=== PATIENT | female | born 1950 | race Caucasian/White ===

== ENCOUNTER 2022-05-05 02:47 | Emergency (ER) | payer MEDICARE, BC, OTHER, SELFPAY ==
[2022-05-05 02:50] VITALS: BP 188/108; PULSE 78; RESP 22; TEMP 37.1; O2SAT 98; BMI 16.4
[2022-05-05 02:52] VITALS: PULSE 82; O2SAT 100
[2022-05-05 02:53] VITALS: BP 188/108; PULSE 80; O2SAT 98
--- NOTE | 2022-05-05 04:22 | ED_ITS ---
HPI - General Adult General Chief complaint: Shortness of Breath/Dyspnea Stated complaint: HAVING TROUBLE BREATHING Time Seen by Provider: 05/05/22 03:23 Source: patient Mode of arrival: Ambulatory History of Present Illness HPI narrative: 71-year-old woman with multiple seasonal and medication allergies, asthma, hypertension presents with upper respiratory symptoms for the last 48 hours. She complains of increasing secretions, cough, throat scratchiness, a sensation that she is not able to breathe because she can not get her secretions out she does not describe significant wheezing, body aches, fevers. She is not having a productive cough. She describes no vomiting, nausea, abdominal pain, constipation. No palpitations or lower extremity edema. She has been using Mucinex, and metered-dose inhaler without a spacer and ibuprofen as well as nasal saline rinses but does not feel like she is improving. Related Data Previous Rx's Medication Instructions Recorded dexamethasone 4 mg tablet 4 mg PO DAILY #4 tabs 05/05/22 Allergies Allergy/AdvReac Type Severity Reaction Status Date / Time acetaminophen [From Vicodin] Allergy Verified 05/05/22 03:14 cefadroxil [From Duricef] Allergy Verified 05/05/22 03:14 doxycycline Allergy Verified 05/05/22 03:14 hydrocodone [From Vicodin] Allergy Verified 05/05/22 03:14 medroxyprogesterone Allergy Verified 05/05/22 03:14 [From Provera] metronidazole [From Flagyl] Allergy Verified 05/05/22 03:14 Sulfa (Sulfonamide Allergy Verified 05/05/22 03:14 Antibiotics) tetracycline Allergy Verified 05/05/22 03:14 Review of Systems Review of Systems Narrative: Remainder of complete review of systems is otherwise unremarkable except for that included in the HPI. Patient History Medical History (Updated 05/05/22 @ 05:08 by Mattie Rios MD) Asthma Hypertension Social History Smoking Status: Never smoker Smoking Status: Never smoker Substance Use Type: does not use Exam Initial Vital Signs Initial Vital Signs: Vital Signs Temperature 98.8 F 05/05/22 02:50 Pulse Rate 78 05/05/22 02:50 Respiratory Rate 22 05/05/22 02:50 Blood Pressure 188/108 H 05/05/22 02:50 Pulse Oximetry 98 05/05/22 02:50 Oxygen Delivery Method 05/05/22 02:50 General: Frail appearing, slightly hoarse but Able to give a complete and coher ent history. Well-nourished well-developed HEENT: Moist mucous membranes, normal sclera with reactive pupils, no pharyngeal exudate, no cervical adenopathy Neck: No JVD, supple Respiratory: Lungs with minor upper airway noises in minimal wheeze, no rhonchi or consolidation findings Full and symmetrical air movement Cardiac: Regular rate and rhythm no murmurs no bruits Abdomen: Soft, nontender, good bowel tones, no flank pain Skin: Warm and dry, no rashes Neurologic: Grossly neurologically intact with no obvious asymmetries or abnormalities Extremities: No trauma, well perfused Psych: Cooperative, appropriate insight and affect Course Orders Ordered: ED Orders 05/05/22 03:21 Respiratory Panel (Film Array) Stat Discontinued Medications Dexamethasone (Dexamethasone 4 Mg Tablet) 4 mg PO NOW ONE Stop: 05/05/22 04:31 Last Admin: 05/05/22 04:55 Dose: 4 mg Documented By: SB Vital Signs Vital signs: Vital Signs - 8 hr 05/05/22 02:50 05/05/22 02:52 05/05/22 02:53 Temperature 98.8 F Pulse Rate 78 82 Respiratory Rate 22 Blood Pressure 188/108 H 188/108 H Pulse Oximetry 98 100 Oxygen Delivery Method Room Air 05/05/22 02:53 Temperature Pulse Rate 80 Respiratory Rate Blood Pressure Pulse Oximetry 98 Oxygen Delivery Method Medical Decision Making Lab Data Labs: Lab Results 05/05/22 Range/Units 03:21 Chlamy pneumoniae PCR Not detected (Not Detect) Adenovirus (PCR) Not detected (Not Detect) B. pertussis DNA (PCR) Not detected (Not Detecte) B.parapertussis DNA PCR Not detected (Not Detecte) Coronavirus OC43 (PCR) Not detected (Not Detect) Coronavirus HKU1 (PCR) Not detected (Not Detect) Coronavirus 229E (PCR) Not detected (Not Detect) SARS-CoV-2 (PCR) Not detected (Not Detecte) Coronavirus NL63 (PCR) Not detected (Not Detect) Human Metapneumovir PCR Not detected (Not Detect) Influenza Type A (PCR) Not detected (Not Detect) Influenza Type B (PCR) Not detected (Not Detect) M. pneumoniae (PCR) Not detected (Not Detect) Parainfluenza 1 (PCR) Not detected (Not Detect) Parainfluenza 2 (PCR) Not detected (Not Detect) Parainfluenza 3 (PCR) Not detected (Not Detect) Parainfluenza 4 (PCR) Not detected (Not Detect) RSV (PCR) Detected H (Not Detect) Entero/Rhino (PCR) Not detected (Not Detect) MDM Narrative Medical decision making narrative: 71-year-old woman with multiple sensitivities including 2 nebulizers and prednisone. She does tolerate metered-dose inhalers and Decadron. She is positive for RSV. We talked about supplemental measures that might be helpful. I will give her an additional 5 days of 4 mg of dexamethasone. We talked about moist heat to try to encourage getting the mucus out. She has an entire protocol using saline nasal rinses that I think will be helpful as well. At this point oxygen saturations remain in the upper 90s, she is not acutely toxic in his safe for discharge home Discharge Plan Departure Patient Disposition: Home Clinical Impression: Respiratory syncytial virus Instructions: DI for Respiratory Syncytial Virus -- Adults Activity Restrictions/Additional Instructions: Thank you for coming in today You do not have a bacterial pneumonia or a life-threatening abnormality today. You do have a viral infection that is causing the increased mucus and difficulty breathing. Using your continued nasal saline washes and anti-inflammatories will continue to be helpful. You can use your meter dose inhaler albuterol as needed. I have also given you 4 additional days of dexamethasone to help with respiratory inflammation. If you find that you are getting worse or develop any new symptoms, please feel free to return to the emergency department for further evaluation. Prescriptions: New dexamethasone 4 mg tablet 4 mg PO DAILY Qty: 4 0RF Referrals: Provider,Logan DOUGHERTY [Primary Care Provider] -
[2022-05-05 04:31] LABS: Adenovirus Not Detected (Not Detect); Coronavirus 229E Not Detected (Not Detect); Coronavirus HKU1 Not Detected (Not Detect); Coronavirus NL 63 Not Detected (Not Detect); Coronavirus OC43 Not Detected (Not Detect); Human Metapneumovirus Not Detected (Not Detect); Human Rhinovirus/Enterovirus Not Detected (Not Detect); Influenza A Not Detected (Not Detect); Influenza B Not Detected (Not Detect); Parainfluenza Virus 1 Not Detected (Not Detect); Parainfluenza Virus 2 Not Detected (Not Detect); Parainfluenza Virus 3 Not Detected (Not Detect); Parainfluenza Virus 4 Not Detected (Not Detect); Respiratory Syncytial Virus Detected (Not Detect); SARS- CoV-2 Not Detected (Not Detecte)
[2022-05-05 04:32] LABS: B. parapertussis Not Detected (Not Detecte); Bordetella pertussis Not Detected (Not Detecte); Chlamydophila pneumoniae Not Detected (Not Detect); Mycoplasma pneumoniae Not Detected (Not Detect)
[2022-05-05] MEDS: dexAMETHasone 4 MG TABLET PO (04:55)
== END 2022-05-05 05:16 | disposition home or self-care (01) ==
PROVIDERS: Emergency Provider Emergency Medicine
DX: J06.9 Acute upper respiratory infection, unspecified (principal); B97.4 Respiratory syncytial virus as the cause of diseases classified elsewhere; Z20.822 Contact with and (suspected) exposure to COVID-19
CPT/HCPCS: 36415; 87633; 99283

== ENCOUNTER 2022-06-24 16:32 | Emergency (ER) | payer MEDICARE, BC, OTHER, SELFPAY ==
[2022-06-24] VITALS (11 sets, daily range): BP systolic 132–170; BP diastolic 73–83; PULSE 61–71; RESP 18; TEMP 37.3; O2SAT 97–100; BMI 16.4
--- NOTE | 2022-06-24 16:42 | DI.RAD.S_ITS ---
PROCEDURE: XR TIBIA fibula RT 2V INDICATIONS: fall off horse TECHNIQUE: 2 views of the tibia and fibula were acquired. COMPARISON: None. FINDINGS: Bones: Proximal fibular fracture, nondisplaced. Generalized decrease in osseous mineralization noted. Soft tissues: No suspicious soft tissue calcifications or masses. IMPRESSION: Proximal fibular fracture, nondisplaced Approved by: Jose C Dozier M.D. on 06/24/2022 at 16:47
--- NOTE | 2022-06-24 16:43 | DI.RAD.S_ITS ---
PROCEDURE: XR HAND LT MIN 3V INDICATIONS: fall off horse TECHNIQUE: 3 views of the hand(s) acquired. COMPARISON: None. FINDINGS: Bones: Generalized decrease in osseous mineralization noted. Oblique fracture through the base of the 5th metacarpal involves the carpometacarpal joint. Probable additional longitudinal fracture through the base of the 3rd metacarpal as well. Soft tissues: No suspicious soft tissue calcifications. IMPRESSION: Intra-articular fracture through the base of the 3rd and 5th metacarpals. Osteopenia Approved by: Jose C Dozier M.D. on 06/24/2022 at 16:45
--- NOTE | 2022-06-24 18:12 | ED_ITS ---
HPI - Fall General Chief Complaint: Fall Stated Complaint: rt calf swelling/lt hand injury, fell off horse Time Seen by Provider: 06/24/22 17:38 Source: patient Mode of arrival: Wheelchair History of Present Illness HPI Narrative: 71-year-old female nonsmoker with noncontributory medical history presents with a family friend and a chief complaint of injury suffered as a consequence of falling off her horse just prior to arrival. She was wearing a helmet, the horse bucked and she fell off, she denies any head neck or back pain. She has full recall of the event and takes no blood thinners. She has pain in her left hand and also her right lateral knee. She denies any numbness, tingling or weakness. She has no chest pain or shortness of breath. She denies nausea, vomiting, diarrhea or abdominal pain. Related Data Previous Rx's Medication Instructions Recorded dexamethasone 4 mg tablet 4 mg PO DAILY #4 tabs 05/05/22 Allergies Allergy/AdvReac Type Severity Reaction Status Date / Time cefadroxil [From Duricef] Allergy Verified 06/24/22 16:42 doxycycline Allergy Verified 06/24/22 16:42 hydrocodone [From Vicodin] Allergy Verified 06/24/22 16:42 medroxyprogesterone Allergy Verified 06/24/22 16:42 [From Provera] metronidazole [From Flagyl] Allergy Verified 06/24/22 16:42 Sulfa (Sulfonamide Allergy Verified 06/24/22 16:42 Antibiotics) tetracycline Allergy Verified 06/24/22 16:42 Review of Systems Review of Systems Narrative: GENERAL: Denies chills, fatigue, malaise, fever, sweats. HEENT: Denies sinus pain, ear pain, sore throat, difficulty swallowing, dizziness. RESPIRATORY: Denies dyspnea, cough, wheezing, hemoptysis, sputum. CARDIOVASCULAR: Denies chest pain, palpitations, orthopnea, edema, GASTROINTESTINAL: Denies nausea, vomiting, abdominal pain, diarrhea, constipation, melena. : Denies dysuria, frequency, incontinence, hematuria, urinary retention. MUSCULOSKELETAL: See HPI SKIN: Denies rash, skin lesions, or other NEUROLOGIC: See HPI PSYCHIATRIC: No concerning psychosocial issues. 12 point review of systems is negative except for those stated above Patient History Medical History Asthma Hypertension Social History Smoking Status: Never smoker Smoking Status: Never smoker Substance Use Type: does not use Exam Narrative Exam Narrative: GENERAL: [71] year old patient appears stated age. Well-developed patient, in mild distress. HEAD: Atraumatic. Normocephalic. EYES: Pupils equal round and reactive. Extraocular motions intact. No scleral icterus. No injection or drainage. ENT: Nose without bleeding, purulent drainage. Throat without erythema, tonsillar hypertrophy or exudate. Airway patent. NECK: Trachea midline. Non tender CARDIOVASCULAR: Regular rate and rhythm without murmurs, gallops, or rubs. RESPIRATORY: Clear to auscultation. Breath sounds equal bilaterally. No wheezes, rales, or rhonchi. GASTROINTESTINAL: Abdomen soft, non-tender, nondistended. EXTREMITIES: Full but painful range of motion in left hand with some ecchymosis on the dorsal aspect. Sensation is intact cap refill is less than 2 seconds. This is closed and neurovascularly intact. No pain in the wrist, elbow or shoulder. Patient has pain on palpation of fibular head and right leg. There is swelling of the calf but compartments are soft. She has intact sensation, cap refills less than 2 seconds and dorsalis pedis is present. BACK: Nontender without deformity or crepitance. No flank tenderness. NEURO: AOx3. SKIN: No rash or erythema of visible areas Initial Vital Signs Initial Vital Signs: Vital Signs Temperature 99.1 F 06/24/22 16:38 Pulse Rate 70 06/24/22 16:38 Respiratory Rate 18 06/24/22 16:38 Blood Pressure 156/73 H 06/24/22 16:38 Pulse Oximetry 98 06/24/22 16:38 Oxygen Delivery Method 06/24/22 16:38 Procedures Orthopedic Splinting/Casting Injury #1: Upper Extremity Injury Location: hand Upper Extremity Immobilizer: ulnar gutter Post splinting neuro exam: intact Post splinting vascular exam: intact Placed by: Nursing Course Orders Ordered: Discontinued Medications Acetaminophen (Acetaminophen 325 Mg Tablet) 975 mg PO NOW ONE Stop: 06/24/22 20:21 Last Admin: 06/24/22 20:25 Dose: 975 mg Documented By: SB Vital Signs Vital signs: Vital Signs - 8 hr 06/25/22 00:02 06/25/22 00:04 06/25/22 00:05 Pulse Rate 63 Blood Pressure Pulse Oximetry 96 98 98 06/25/22 00:06 Pulse Rate Blood Pressure 149/97 H Pulse Oximetry MDM - Fall MDM Narrative Medical decision making narrative: [71-year-old female, previously healthy with injury suffered as a consequence of a fall from horse] Multiple etiologies for patient's symptoms considered including, but not limited to: Hand fracture, tib-fib fracture, compartment syndrome, vascular injury versus other Prior Charts reviewed: Including ED visit from 05/05/22 for RSV Imaging reviewed: Left hand fractures including 3rd and 5th metacarpals with some intra-articular involvement but no angulation. Proximal fibula fracture Consultations: Fractures noted. Hand splinted. Extensive discussion with patient and friend regarding return precautions with careful discussion regarding compartment syndrome. Currently compartments soft, no evidence of compartment syndrome Patient's symptoms improved over duration of stay with above-stated therapies. Findings and discharge diagnosis discussed with patient/family followed by verbalization of understanding Return precautions discussed with patient/family whom verbalize understanding of diagnosis and plan Discharge Plan Departure Patient Disposition: Home Clinical Impression: Fracture of metacarpal base, closed, Fibula fracture, Swelling of calf Instructions: DI for a Hand Fracture Activity Restrictions/Additional Instructions: *You have been diagnosed with [fractures through the base of the 3rd and 5th metacarpals on your left hand as well as the proximal portion of your right fibula.] *What to do: *Please continue to take your regular medications as directed. [ ] New medication prescriptions sent to your pharmacy: [ ] [ ] New medication written as a paper prescription [x] Tylenol and occasional Motrin for pain *Please follow up with [Cara] of [facility] in 2-3 days, call for an appointment. Let them know you were seen in the Emergency Department and that we ask that you be seen in follow up. We will electronically transmit a record of today's note if your PCP is in our system *Return to Emergency Department if you should have any new, worsening or concerning symptoms, such as [worsening pain, significant swelling, cold extremities, numbness, tingling, weakness or other bothersome symptoms Splint Care: Keep splint clean and dry. Elevated affected body part to decrease swelling. OK to use ice pack on the affected body part. Use for 15-20 minutes each time, for 5-6x per day. If you develop worsening pain, numbness, tingling, discoloration of the affected body part, loosen the splint by loosening the SADAF wrap, and either see your doctor for an urgent re-assessment, or return to the Emergency Department. Return to the Emergency Department for any new or worsening symptoms. Prescriptions: No Action dexamethasone 4 mg tablet 4 mg PO DAILY Qty: 4 0RF Referrals: Brian Marroquin MD [Physician] - Provider,Logan DOUGHERTY [Primary Care Provider] - Stand Alone Forms: Patient Portal/API
--- NOTE | 2022-06-24 20:21 | DI.US.S_ITS ---
PROCEDURE: US PERIPH VENOUS LOW EXTREM RT INDICATIONS: PAIN/SWELLING RIGHT CALF. POST FALL-FIBULA FRACTURE. TECHNIQUE: Real-time imaging, as well as color and pulse Doppler interrogation, were performed of the lower extremity deep veins from the inguinal ligament to the popliteal fossa. COMPARISON: None. FINDINGS: The common femoral, femoral and popliteal veins are normally compressible, and free of intraluminal thrombus. Color and pulse Doppler demonstrate normal phasic intraluminal flow. There is normal augmentation response to distal compression maneuver. Note is made of edema within the soft tissues of the proximal calf extending to the ankle area, having a posterior course of approximately 18 cm, thin, measuring 3.5 cm wrapping anteriorly and posteriorly. IMPRESSION: No DVT found. Edema and thin fluid collection as discussed above, interdigitating within the soft tissues. Etiology is uncertain. In the setting of recent prior trauma an involuting hematoma is the most likely cause. Dictated by: Amado Coelho M.D. on 06/24/2022 at 21:44 Approved by: Amado Coelho M.D. on 06/24/2022 at 21:48
[2022-06-24] MEDS: ACETAMINOPHEN 325 MG TABLET 975 MG PO (20:25)
--- NOTE | 2022-06-24 21:49 | PC.NURSE ---
Pt was ready to discharge. Pt c/o of dizziness, and upon standing her knees buckled and she lowered herself to the bed. Provider aware. New verbal order of bolus of NS given.
[2022-06-25 00:02] VITALS: O2SAT 96
[2022-06-25 00:04] VITALS: PULSE 63; O2SAT 98
[2022-06-25 00:05] VITALS: O2SAT 98
[2022-06-25 00:06] VITALS: BP 149/97
== END 2022-06-25 00:12 | disposition home or self-care (01) ==
PROVIDERS: Emergency Provider Emergency Medicine
DX: S62.313A Displaced fracture of base of third metacarpal bone, left hand, initial encounter for closed fracture (principal); S62.317A Displaced fracture of base of fifth metacarpal bone, left hand, initial encounter for closed fracture; S82.831A Other fracture of upper and lower end of right fibula, initial encounter for closed fracture; V80.010A Animal-rider injured by fall from or being thrown from horse in noncollision accident, initial encounter; Y93.52 Activity, horseback riding
CPT/HCPCS: 29125; 73130; 73590; 93971; 99284

== ENCOUNTER → 2023-02-11 15:41 | Outpatient (CLI) | payer MEDICARE, BC, OTHER, SELFPAY | PROVIDERS: Visit Provider Nurse Practitioner Family | DX: J02.9 Acute pharyngitis, unspecified (principal) | CPT/HCPCS: 87070 ==

== ENCOUNTER 2024-06-26 14:50 | Emergency (ER) | payer MEDICARE, BC, OTHER, SELFPAY ==
[2024-06-26] VITALS (12 sets, daily range): BP systolic 98–188; BP diastolic 59–132; PULSE 58–85; RESP 15–28; TEMP 36.9; O2SAT 95–100
--- NOTE | 2024-06-26 14:56 | DI.RAD.S_ITS ---
PROCEDURE: XR FEMUR RT MIN 2V INDICATIONS: fall and femur injury TECHNIQUE: Two views of the femur were acquired. COMPARISON: None. FINDINGS: Bones: There is a comminuted distal femur fracture with impaction and mild fragment displacement. the hip joint remains intact. Soft tissues: No suspicious soft tissue calcifications or masses. IMPRESSION: Comminuted, impacted distal femur fracture. No hip dislocation. Dictated by: Renée Jordan M.D. on 06/26/2024 at 17:11 Approved by: Renée Jordan M.D. on 06/26/2024 at 17:13
--- NOTE | 2024-06-26 14:56 | DI.RAD.S_ITS ---
PROCEDURE: XR CHEST 1V INDICATIONS: fall from horse, deformity right distal thigh TECHNIQUE: One view of the chest was acquired. COMPARISON: None. FINDINGS: Surgical changes and devices: None. Lungs and pleura: Lungs are clear. Lungs appear hyperexpanded. No pleural effusions or pneumothorax. Mediastinum: Mediastinal contours appear normal. Heart size is normal. Bones and chest wall: No suspicious bony lesions. Overlying soft tissues appear unremarkable. IMPRESSION: No acute cardiopulmonary abnormality is seen. Dictated by: Suleman Heart M.D. on 06/26/2024 at 16:06 Approved by: Suleman Heart M.D. on 06/26/2024 at 16:06
--- NOTE | 2024-06-26 14:56 | DI.RAD.S_ITS ---
PROCEDURE: XR PELVIS 1-2V INDICATIONS: fall from horse, deformity right distal thigh TECHNIQUE: 1 view(s) of the pelvis acquired. COMPARISON: None. FINDINGS: Bones: No fractures or dislocations. No suspicious bony lesions. Soft tissues: Visualized bowel gas pattern is normal. No suspicious soft tissue calcifications. IMPRESSION: No acute osseous abnormality. If pain persists with conservative management, consider repeat x-ray in 10-14 days or cross-sectional imaging. Dictated by: Suleman Heart M.D. on 06/26/2024 at 16:11 Approved by: Suleman Heart M.D. on 06/26/2024 at 16:12
--- NOTE | 2024-06-26 14:56 | DI.CT.S_ITS ---
PROCEDURE: CT TRAUMA CHEST ABDOMEN PELVIS INDICATIONS: trauma TECHNIQUE: After the administration of intravenous contrast, 5 mm thick sections acquired from the lung apices to the symphysis. 2.5 mm thick coronal and sagittal reformats were acquired. Additional 7 mm thick coronal maximum intensity projection (MIP) reformats acquired through the lungs. Optional 10-minute delayed imaging may be performed from the kidneys to the bladder. For radiation dose reduction, the following was used: automated exposure control, adjustment of mA and/or kV according to patient size. COMPARISON: None. FINDINGS: Image quality: Diagnostic. CHEST: Lower Neck: No enlarged lymph nodes. Thyroid: No thyroid nodules which require sonographic evaluation. Axillae: No enlarged lymph nodes. Chest Wall: No subcutaneous gas. Lungs and Pleura: No pulmonary contusions or lacerations. No acute airspace opacities. No pneumothorax or hemothorax. Mild dependent atelectasis. Mediastinum: No mediastinal hematomas. Heart size is normal. Mild coronary artery calcifications. No pericardial effusion. Thoracic aorta and pulmonary arteries demonstrate normal size and enhancement. No mediastinal or hilar adenopathy. Esophagus is normal in caliber. No hiatal hernia. ABDOMEN: Liver: No lacerations. Gallbladder: No radiopaque gallstones or wall thickening. Biliary ducts: No biliary dilation. Pancreas: Homogenous enhancement. Mild prominence of the pancreatic duct measuring 3 mm. Spleen: Homogenous enhancement without laceration or hematoma. Adrenal Glands: Symmetric enhancement. Kidneys and Ureters: Symmetric enhancement. No hydronephrosis. No solid mass. No complex renal cystic lesion which requires follow up. Stomach and Bowel: Normal colonic caliber, without significant wall thickening. Peritoneum: No abnormal intraperitoneal fluid. No free air. Ventral Wall: No hernia. Abdominal Nodes: No retroperitoneal or mesenteric adenopathy by size criteria. Vessels: Aorta and inferior vena cava are normal in size. PELVIS: Pelvic Organs: Unremarkable. Bladder: Normal thickness. Pelvic Nodes: No enlarged lymph nodes. Miscellaneous: No inguinal hernias are seen. Bones: Pelvic ring and hip joints appear intact. No displaced rib fractures. Questionable minimally displaced fractures of the right posterior lateral 10th and 9th ribs. IMPRESSION: Questionable minimally displaced fractures of the right posterior lateral 9th and 10th ribs, recommend correlation with point tenderness. Otherwise, no evidence of traumatic injury to the chest, abdomen or pelvis. Dictated by: Suleman Heart M.D. on 06/26/2024 at 16:26 Approved by: Suleman Heart M.D. on 06/26/2024 at 16:37
--- NOTE | 2024-06-26 14:56 | DI.RAD.S_ITS ---
PROCEDURE: XR KNEE RT 1TO2V INDICATIONS: fall from horse, deformity right distal thigh TECHNIQUE: 2 views of the knee were acquired. COMPARISON: None. FINDINGS: Bones: Comminuted and mildly displaced fracture of the distal femur with mild impaction.. No suspicious bony lesions. Soft tissues: No joint effusion. No suspicious soft tissue calcifications. IMPRESSION: Comminuted and mildly displaced fracture of the distal femur with mild impaction. Dictated by: Suleman Heart M.D. on 06/26/2024 at 16:14 Approved by: Suleman Heart M.D. on 06/26/2024 at 16:15
--- NOTE | 2024-06-26 14:57 | DI.CT.S_ITS ---
PROCEDURE: CT HEAD/BRAIN WO CON INDICATIONS: Trauma TECHNIQUE: Noncontrast 4.5 mm thick angled axial sections acquired from the foramen magnum to the vertex, with coronal and sagittal reformats. For radiation dose reduction, the following was used: automated exposure control, adjustment of mA and/or kV according to patient size. COMPARISON: None. FINDINGS: Image quality: Diagnostic. CSF spaces: Basal cisterns are patent. No extra-axial fluid collections. The ventricles are symmetric in size and shape. Brain: No intracranial bleeds or masses. There is cerebral volume loss for age, with resultant ventricular and sulcal prominence. There are periventricular and deep white matter chronic small vessel ischemic changes. There is intracranial internal carotid artery atherosclerosis. Skull and face: Calvarium and visualized facial bones appear intact, without suspicious lesions. Sinuses: Visualized sinuses and mastoids are clear. IMPRESSION: No acute intracranial pathology. Dictated by: Suleman Heart M.D. on 06/26/2024 at 15:54 Approved by: Suleman Heart M.D. on 06/26/2024 at 15:55
--- NOTE | 2024-06-26 14:57 | DI.CT.S_ITS ---
PROCEDURE: CT CERVICAL SPINE WO CON INDICATIONS: Trauma TECHNIQUE: Noncontrast 3 mm thick sections acquired from the skull base to the T4 level. Sagittal and coronal reformats were then constructed. For radiation dose reduction, the following was used: automated exposure control, adjustment of mA and/or kV according to patient size. COMPARISON: None. FINDINGS: Image quality: Excellent. Bones: No fractures or dislocations. Multilevel degenerative changes of the cervical spine. Visualized superior ribs are intact. Soft tissues: Prevertebral soft tissues are normal in thickness. No paravertebral hematomas. No apical pneumothoraces. IMPRESSION: No displaced fracture or traumatic subluxation. Dictated by: Suleman Heart M.D. on 06/26/2024 at 15:55 Approved by: Suleman Heart M.D. on 06/26/2024 at 15:57
[2024-06-26] MEDS: LORazepam 2 MG/ML INJ 1 MG IV ×2 (14:58→16:20)
--- NOTE | 2024-06-26 15:14 | EKG_ITS ---
[place] [id number] [place] [id number] Test Date: 2024-06-26 Pat Name: Arielle Cordero Department: [facility] Room: Gender: Female Occupational Therapy Program Director: HEDY : 1950 Requested By: Order Number: [id number] Reading MD: Wiliam Moore MD Measurements Intervals [place] Rate: 62 P: 82 ME: 172 QRS: 57 QRSD: 88 T: 58 QT: 426 QTc: 432 Interpretive Statements Normal sinus rhythm Moderate voltage criteria for LVH, may be normal variant ( Sokolow-Rooney , Wharton product ) Electronically Signed On 06-26-2024 16:25:42 PST by Wiliam Moore MD
[2024-06-26 15:45] LABS: Prothrombin Time 11.8 SECONDS (9.4-12.5)
[2024-06-26 15:48] LABS: PTT Partial Thromboplastin Tim 34 SECONDS (25.1-36.5)
--- NOTE | 2024-06-26 15:49 | ED_ITS ---
HPI - Trauma General Chief Complaint: Trauma Stated Complaint: Possible Femure Fx Time Seen by Provider: 06/26/24 14:51 Source: patient and EMS Mode of arrival: EMS Limitations: no limitations History of Present Illness HPI narrative: 73-year-old female history of hypertension metoprolol and Nexium or her only medications no anticoagulants. Patient was riding her horse was helmeted was bucked off landed sort of on her right side. States she did hit her head but denies any headache neck pain or back pain. No loss of consciousness. No confusion or altered mental status. She declines of pain in her distal femur and cramping. Had reported obvious deformity at the scene. Patient denies any numbness or tingling of the lower extremities. She denies any chest pain or shortness of breath. No nausea or vomiting. Denies any new GI or urinary symptoms. Patient denies any numbness or tingling of her extremities or any pain or injury to her upper extremities or other leg. Patient transported with EMS did not have any hypoxia did receive 7 mg of morphine route, no other medications. No tobacco, no alcohol no recreational drugs. Patient is accompanied by a friend who was riding horses with her. Related Data Previous Rx's Medication Instructions Recorded dexamethasone 4 mg tablet 4 mg PO DAILY #4 tabs 05/05/22 Allergies Allergy/AdvReac Type Severity Reaction Status Date / Time cefadroxil [From Duricef] Allergy Verified 02/11/23 15:28 doxycycline Allergy Verified 02/11/23 15:28 hydrocodone [From Vicodin] Allergy Verified 02/11/23 15:28 medroxyprogesterone Allergy Verified 02/11/23 15:28 [From Provera] metronidazole [From Flagyl] Allergy Verified 02/11/23 15:28 Sulfa (Sulfonamide Allergy Verified 02/11/23 15:28 Antibiotics) tetracycline Allergy Verified 02/11/23 15:28 Review of Systems Review of Systems ROS Unobtainable: All systems reviewed & are unremarkable except as noted in HPI and below Patient History Medical History Hypertension Asthma Social History Smoking Status: Never smoker Smoking Status: Never smoker Exam Narrative Exam Narrative: GEN: Patient appears in mild distress. HEAD: No evidence of trauma, no raccoon/Mathew sign. NECK: Nontender, painless range of motion, trachea midline Negative Nexus criteria, no midline line tenderness, distracting injury, altered mental status, neuro deficit, recent EtOH. EYES: PERRLA, EOMI ENT: External inspection normal, trachea is midline, TM's are normal no hemotypanum, Nares are clear, no septal hematoma, no dental or oral injury, airway is normal and with normal occlusion, No bony tenderness RESP: Chest is nontender and has symmetric movement, no ecchymosis, breath sounds are normal no crackles, wheezes or rales CVS: Heart sounds are normal, no murmur noted, No JVD. ABG/GI: Nontender, soft, normal bowel sounds, no distention, no organomegaly, pelvic rock is negative NEURO: Oriented AOx3, neuro is grossly intact, sensation and motor is normal all 4 extremities moving, cranial nerves II through XII are intact, GCS is 15 PSYCH: Normal mood and affect SKIN: Intact, warm and dry, no crepitus and without decubitus BACK: No CVA tenderness, no vertebral tenderness, no step-off's, no crepitus EXT: Patient has a little bit of deformity at the right distal femur. She was currently in a splint. She has sensation to light touch throughout all 4 extremities palpable pulse in all 4 extremities. Hips are nontender, no pedal edema, normal range of motion bilateral upper extremities and left lower extremity. Initial Vital Signs Initial Vital Signs: Vital Signs Temperature 98.4 F 06/26/24 14:51 Pulse Rate 64 06/26/24 14:51 Respiratory Rate 19 06/26/24 14:51 Blood Pressure 135/78 06/26/24 14:51 Pulse Oximetry 98 06/26/24 14:51 Oxygen Delivery Method Room Air 06/26/24 14:51 Course Orders Ordered: ED Orders 06/26/24 14:56 CT Trauma Chest Abdomen Pelvis Stat XR chest 1V Stat XR femur RT min 2V Stat XR knee RT 1to2V Stat XR pelvis 1-2V Stat EKG-12 Lead Stat 06/26/24 14:57 CT cervical spine wo con Stat CT head/brain wo con Stat 06/26/24 15:17 Complete Blood Count AUTO DIFF Stat Comprehensive Metabolic Panel Stat Ethanol (ETOH) Stat Lactate (Lactic Acid) Stat Lipase Stat PTT Partial Thromboplastin Ashkan Stat Prothrombin Time INR Stat Type and Screen Stat Discontinued Medications Diphtheria/Tetanus/Acell Pertussis (Tet,Diph,Pertuss(Acell),Vac/Pf 0.5 Ml Syringe) 0.5 ml IM .ONCE ONE Stop: 06/26/24 14:57 Last Admin: 06/26/24 16:27 Dose: Not Given Documented By: CAMILA Sodium Chloride (Normal Saline 0.9%) 1,000 mls @ 500 mls/hr IV BOLUS ONE Stop: 06/26/24 19:35 Last Infusion: 06/26/24 18:03 Dose: 500 mls/hr Documented By: Admin: 06/26/24 17:46 Dose: 500 mls/hr Documented By: TOMÁS Lorazepam (Lorazepam 2 Mg/Ml Inj) 1 mg IV NOW ONE Stop: 06/26/24 14:55 Last Admin: 06/26/24 14:58 Dose: 1 mg Documented By: Lorazepam (Lorazepam 2 Mg/Ml Inj) 1 mg IV NOW ONE Stop: 06/26/24 16:20 Last Admin: 06/26/24 16:20 Dose: 1 mg Documented By: TOMÁS Oxycodone HCl (Oxycodone Ir 5 Mg Tablet) 5 mg PO NOW ONE Stop: 06/26/24 17:37 Last Admin: 06/26/24 17:46 Dose: 5 mg Documented By: TOMÁS Vital Signs Vital signs: Vital Signs - 8 hr 06/26/24 14:51 06/26/24 14:56 06/26/24 15:00 Temperature 98.4 F Pulse Rate 64 68 63 Respiratory Rate 19 19 16 Blood Pressure 135/78 188/90 H 179/114 H Pulse Oximetry 98 100 99 Oxygen Delivery Method Room Air Room Air Room Air 06/26/24 15:03 06/26/24 15:32 06/26/24 15:35 Temperature Pulse Rate 62 64 63 Respiratory Rate 20 23 17 Blood Pressure 186/88 H 186/89 H Pulse Oximetry 95 96 100 Oxygen Delivery Method Room Air Room Air 06/26/24 15:36 06/26/24 15:36 06/26/24 16:00 Temperature Pulse Rate 65 Respiratory Rate 23 Blood Pressure 170/132 H 130/77 Pulse Oximetry 99 Oxygen Delivery Method 06/26/24 16:00 06/26/24 16:30 06/26/24 16:30 Temperature Pulse Rate 62 59 L Respiratory Rate 18 15 Blood Pressure 133/77 Pulse Oximetry 96 98 Oxygen Delivery Method 06/26/24 17:00 06/26/24 17:00 06/26/24 17:30 Temperature Pulse Rate 61 58 L Respiratory Rate 16 20 Blood Pressure 103/67 Pulse Oximetry 95 96 Oxygen Delivery Method 06/26/24 17:30 06/26/24 17:41 06/26/24 17:41 Temperature Pulse Rate 58 L Respiratory Rate 27 H Blood Pressure 98/59 L 110/61 Pulse Oximetry 97 Oxygen Delivery Method MDM - Trauma Lab Data 06/26/24 15:17 06/26/24 15:17 Labs: Lab Results 06/26/24 Range/Units 15:17 WBC 5.4 (4.5-11.0) X10^3/uL RBC 4.28 (4.0-5.2) X10^6/uL Hgb 14.4 (12.0-16.0) g/dL Hct 43.1 (36-46) % MCV 100.7 H (80-100) fL MCH 33.8 (26-34) PG MCHC 33.5 (30-36) % RDW 13.3 (11.6-14.8) % Plt Count 241 (150-400) X10^3/uL Neut % (Auto) 72.0 (50-75) % Lymph % (Auto) 17.3 L (25-40) % [place] % (Auto) 7.5 (3-14) % Eos % (Auto) 1.6 L (2-4) % Baso % (Auto) 1.6 (0-2) % Neut # (Auto) 3900 (0294-2750) /uL Lymph # (Auto) 900 L (7270-5707) /uL [place] # (Auto) 400 (0-900) /uL Eos # (Auto) 100 (0-450) /uL Baso # (Auto) 100 (0-100) /uL PT 11.8 (9.4-12.5) SECONDS INR 1.0 (0.9-1.3) APTT 34 (25.1-36.5) SECONDS Sodium 136 L (137-145) mmol/L Potassium 3.7 (3.4-5.1) mmol/L Chloride 102 (98-107) mmol/L Carbon Dioxide 26 (22-32) mmol/L BUN 21 H (7-17) mg/dL Creatinine 1.02 (0.52-1.04) mg/dL Estimated GFR 58 L (>60) mL/min BUN/Creatinine Ratio 20.6 (6-22) Glucose 109 (80-110) mg/dL Lactate 1.5 (0.7-2.1) mmol/L Calcium 9.7 (8.4-10.2) mg/dL Total Bilirubin 0.7 (0.2-1.3) mg/dL AST 37 H (14-36) IU/L ALT 24 (<35) IU/L Alkaline Phosphatase 72 (38-126) U/L Total Protein 7.3 (6.3-8.2) g/dL Albumin 4.6 (3.5-5.0) g/dL Globulin 2.7 (1.7-4.1) g/dL Albumin/Globulin Ratio 1.7 (1.0-2.8) Lipase 132 (23-300) U/L Ethyl Alcohol < 10 ( - 10) mg/dL Blood Type A Positive Antibody Screen Negative Point of Care Testing Glucose POC [address] chest abdomen pelvis: Radiologist's Impression: [place] [address] CT Scan Report Signed Patient: Arielle Cordero MR#: [id number] : 1950 Acct:[id number] Age/Sex: 73 / F Date of Service: 06/26/24 Loc: ED Accession Number: [id number] Procedure: CT Trauma Chest Abdomen Pelvis Ordering Provider: Juliette Marina D.O. PROCEDURE: CT TRAUMA CHEST ABDOMEN PELVIS INDICATIONS: trauma TECHNIQUE: After the administration of intravenous contrast, 5 mm thick sections acquired from the lung apices to the symphysis. 2.5 mm thick coronal and sagittal reformats were acquired. Additional 7 mm thick coronal maximum intensity projection (MIP) reformats acquired through the lungs. Optional 10-minute delayed imaging may be performed from the kidneys to the bladder. For radiation dose reduction, the following was used: automated exposure control, adjustment of mA and/or kV according to patient size. COMPARISON: None. FINDINGS: Image quality: Diagnostic. CHEST: Lower Neck: No enlarged lymph nodes. Thyroid: No thyroid nodules which require sonographic evaluation. Axillae: No enlarged lymph nodes. Chest Wall: No subcutaneous gas. Lungs and Pleura: No pulmonary contusions or lacerations. No acute airspace opacities. No pneumothorax or hemothorax. Mild dependent atelectasis. Mediastinum: No mediastinal hematomas. Heart size is normal. Mild coronary artery calcifications. No pericardial effusion. Thoracic aorta and pulmonary arteries demonstrate normal size and enhancement. No mediastinal or hilar adenopathy. Esophagus is normal in caliber. No hiatal hernia. ABDOMEN: Liver: No lacerations. Gallbladder: No radiopaque gallstones or wall thickening. Biliary ducts: No biliary dilation. Pancreas: Homogenous enhancement. Mild prominence of the pancreatic duct measuring 3 mm. Spleen: Homogenous enhancement without laceration or hematoma. Adrenal Glands: Symmetric enhancement. Kidneys and Ureters: Symmetric enhancement. No hydronephrosis. No solid mass. No complex renal cystic lesion which requires follow up. Stomach and Bowel: Normal colonic caliber, without significant wall thickening. Peritoneum: No abnormal intraperitoneal fluid. No free air. Ventral Wall: No hernia. Abdominal Nodes: No retroperitoneal or mesenteric adenopathy by size criteria. Vessels: Aorta and inferior vena cava are normal in size. PELVIS: Pelvic Organs: Unremarkable. Bladder: Normal thickness. Pelvic Nodes: No enlarged lymph nodes. Miscellaneous: No inguinal hernias are seen. Bones: Pelvic ring and hip joints appear intact. No displaced rib fractures. Questionable minimally displaced fractures of the right posterior lateral 10th and 9th ribs. IMPRESSION: Questionable minimally displaced fractures of the right posterior lateral 9th and 10th ribs, recommend correlation with point tenderness. Otherwise, no evidence of traumatic injury to the chest, abdomen or pelvis. Dictated by: [facility] M.D. on 06/26/2024 at 16:26 Approved by: [facility] M.D. on 06/26/2024 at 16:37 CT scan - head: Radiologist's Impression: Arielle Cordero??73??F??1950 ? Allergy/Adv: cefadroxil, doxycycline, hydrocodone, medroxyprogesterone, metronidazole, Sulfa (Sulfonamide Antibiotics), tetracycline (More??) Close Head CT (Signed) [facility] - 06/26/[address] (Signed) Heart - 06/26/24 Pelvis X-Ray (Signed) - 06/26/24 Knee X-Ray (Signed) Heart - 06/26/24 Knee X-Ray (Cancelled) 06/26/24 Femur X-Ray 06/26/24 Femur X-Ray (Cancelled) 06/26/24 Chest/Abdomen/Pelvis CT (Signed) Heart,[facility]man - 06/26/24 Chest X-Ray (Signed) Heart,[facility] - 06/26/24 Vascular Ultrasound (Signed) Amado Coelho - 06/24/22 Hand X-Ray (Signed) Jose C Dozier - 06/24/22 Tibia/Fibula X-Ray (Signed) Jose C Dozier - 06/24/22 [place] [address] CT Scan Report Signed Patient: Arielle Cordero MR#: [id number] : 1950 Acct:[id number] Age/Sex: 73 / F Date of Service: 06/26/24 Loc: ED Accession Number: [id number] Procedure: CT head/brain wo con Ordering Provider: Juliette Marina D.O. PROCEDURE: CT HEAD/BRAIN WO CON INDICATIONS: Trauma TECHNIQUE: Noncontrast 4.5 mm thick angled axial sections acquired from the foramen magnum to the vertex, with coronal and sagittal reformats. For radiation dose reduction, the following was used: automated exposure control, adjustment of mA and/or kV according to patient size. COMPARISON: None. FINDINGS: Image quality: Diagnostic. CSF spaces: Basal cisterns are patent. No extra-axial fluid collections. The ventricles are symmetric in size and shape. Brain: No intracranial bleeds or masses. There is cerebral volume loss for age, with resultant ventricular and sulcal prominence. There are periventricular and deep white matter chronic small vessel ischemic changes. There is intracranial internal carotid artery atherosclerosis. Skull and face: Calvarium and visualized facial bones appear intact, without suspicious lesions. Sinuses: Visualized sinuses and mastoids are clear. IMPRESSION: No acute intracranial pathology. Dictated by: [facility] M.D. on 06/26/2024 at 15:54 Approved by: [facility] M.D. on 06/26/2024 at 15:55 CT - cervical spine: Radiologist's Impression: Arielle Cordero??73??F??1950 ? Allergy/Adv: cefadroxil, doxycycline, hydrocodone, medroxyprogesterone, metronidazole, Sulfa (Sulfonamide Antibiotics), tetracycline (More??) Close Head CT (Signed) [facility] - 06/26/[address] (Signed) Heart06/26/24 Pelvis X-Ray (Signed) Heart06/26/24 Knee X-Ray (Signed) Heart06/26/24 Knee X-Ray (Cancelled) 06/26/24 Femur X-Ray 06/26/24 Femur X-Ray (Cancelled) 06/26/24 Chest/Abdomen/Pelvis CT (Signed) Heart06/26/24 Chest X-Ray (Signed) [facility]06/26/24 Vascular Ultrasound (Signed) Amado Coelho - 06/24/22 Hand X-Ray (Signed) Dozier,Jose C - 06/24/22 Tibia/Fibula X-Ray (Signed) Dozier,Jose C - 06/24/22 [place] [address] CT Scan Report Signed Patient: Arielle Cordero MR#: [id number] : 1950 Acct:[id number] Age/Sex: 73 / F Date of Service: 06/26/24 Loc: ED Accession Number: [id number] Procedure: CT cervical spine wo con Ordering Provider: Juliette Marina D.O. PROCEDURE: CT CERVICAL SPINE WO CON INDICATIONS: Trauma TECHNIQUE: Noncontrast 3 mm thick sections acquired from the skull base to the T4 level. Sagittal and coronal reformats were then constructed. For radiation dose reduction, the following was used: automated exposure control, adjustment of mA and/or kV according to patient size. COMPARISON: None. FINDINGS: Image quality: Excellent. Bones: No fractures or dislocations. Multilevel degenerative changes of the cervical spine. Visualized superior ribs are intact. Soft tissues: Prevertebral soft tissues are normal in thickness. No paravertebral hematomas. No apical pneumothoraces. IMPRESSION: No displaced fracture or traumatic subluxation. Dictated by: [facility] M.D. on 06/26/2024 at 15:55 Approved by: [facility] M.D. on 06/26/2024 at 15:57 Chest x-ray: Radiologist's Impression: [address] [address] XRay Report Signed Patient: Arielle Cordero MR#: [id number] : 1950 Acct:[id number] Age/Sex: 73 / F Date of Service: 06/26/24 Loc: ED Accession Number: [id number] Procedure: XR chest 1V Ordering Provider: Juliette Marina D.O. PROCEDURE: XR CHEST 1V INDICATIONS: fall from horse, deformity right distal thigh TECHNIQUE: One view of the chest was acquired. COMPARISON: None. FINDINGS: Surgical changes and devices: None. Lungs and pleura: Lungs are clear. Lungs appear hyperexpanded. No pleural effusions or pneumothorax. Mediastinum: Mediastinal contours appear normal. Heart size is normal. Bones and chest wall: No suspicious bony lesions. Overlying soft tissues appear unremarkable. IMPRESSION: No acute cardiopulmonary abnormality is seen. Dictated by: [facility] M.D. on 06/26/2024 at 16:06 Approved by: [facility] M.D. on 06/26/2024 at 16:06 Pelvic x-ray: Radiologist's Impression: Arielle Cordero??73??F??1950 ? Allergy/Adv: cefadroxil, doxycycline, hydrocodone, medroxyprogesterone, metronidazole, Sulfa (Sulfonamide Antibiotics), tetracycline (More??) Close Head CT (Signed) [facility] - 06/26/[address] (Signed) [facility] - 06/26/24 Pelvis X-Ray (Signed) Una - 06/26/24 Knee X-Ray (Signed) Italo Hearty - 06/26/24 Knee X-Ray (Cancelled) 06/26/24 Femur X-Ray 06/26/24 Femur X-Ray (Cancelled) 06/26/24 Chest/Abdomen/Pelvis CT (Signed) [facility] - 06/26/24 Chest X-Ray (Signed) [facility] - 06/26/24 Vascular Ultrasound (Signed) Amado Coelho - 06/24/22 Hand X-Ray (Signed) Jose C Dozier - 06/24/22 Tibia/Fibula X-Ray (Signed) Jose C Dozier - 06/24/22 [facility] [address] [address] XRay Report Signed Patient: Arielle Cordero MR#: [id number] : 1950 Acct:[id number] Age/Sex: 73 / F Date of Service: 06/26/24 Loc: ED Accession Number: [id number] Procedure: XR pelvis 1-2V Ordering Provider: Juliette Marina D.O. PROCEDURE: XR PELVIS 1-2V INDICATIONS: fall from horse, deformity right distal thigh TECHNIQUE: 1 view(s) of the pelvis acquired. COMPARISON: None. FINDINGS: Bones: No fractures or dislocations. No suspicious bony lesions. Soft tissues: Visualized bowel gas pattern is normal. No suspicious soft tissue calcifications. IMPRESSION: No acute osseous abnormality. If pain persists with conservative management, consider repeat x-ray in 10-14 days or cross-sectional imaging. Dictated by: [facility] M.D. on 06/26/2024 at 16:11 Approved by: [facility] M.D. on 06/26/2024 at 16:12 Extremity x-ray #1: Radiologist's Impression: [address] [address] XRay Report Signed Patient: Arielle Cordero MR#: [id number] : 1950 Acct:[id number] Age/Sex: 73 / F Date of Service: 06/26/24 Loc: ED Accession Number: [id number] Procedure: XR knee RT 1to2V Ordering Provider: Juliette Marina D.O. PROCEDURE: XR KNEE RT 1TO2V INDICATIONS: fall from horse, deformity right distal thigh TECHNIQUE: 2 views of the knee were acquired. COMPARISON: None. FINDINGS: Bones: Comminuted and mildly displaced fracture of the distal femur with mild impaction.. No suspicious bony lesions. Soft tissues: No joint effusion. No suspicious soft tissue calcifications. IMPRESSION: Comminuted and mildly displaced fracture of the distal femur with mild impaction. Dictated by: [facility] M.D. on 06/26/2024 at 16:14 Approved by: [facility] M.D. on 06/26/2024 at 16:15 ECG Data Attestation: I personally reviewed and interpreted this ECG as follows: Prior ECG tracings: not available for review Interpretation: Sinus rhythm rate of 62 AL 172 QRS 88 QTC 432, no acute ST change voltage criteria for LVH. No priors for comparison. MDM Narrative Medical decision making narrative: 73-year-old female, activated as a modified trauma. Patient has reported long bone deformity vitals were appropriate with EMS. Initially was quite calm uncomfortable but developed some spasm became quite uncomfortable. Did hit her head but was helmeted no loss of consciousness she was alert appropriate but based on age and mechanism head CT, CT cervical spine and chest abdomen pelvis were obtained. Head CT: Shows no acute intracranial pathology CT cervical spine: Shows no displaced fracture or traumatic subluxation. CT chest abdomen pelvis mild dependent atelectasis prominence pancreatic duct measuring 3 mm. Questionable minimal displaced fractures of the right posterolateral 9th and 10th ribs no evidence of traumatic injury in the chest abdomen pelvis otherwise. Chest x-ray prelim no acute change, no acute cardiopulmonary abnormality. Pelvic x-ray no fracture appreciated, no acute osseous change. Distal femur x-ray shows a distal comminuted femur fracture. Knee x-ray shows comminuted and mildly displaced fracture of the distal femur with mild impaction no suspicious bony lesions no joint effusion. Labs show normal white count hemoglobin and platelets MCV is 100.7 coags are negative, electrolytes shows sodium 136 BUN 21 creatinine is 1.02 AST is 37 but normal ALT bilirubin and lipase. Glucose is 109. ETOH is negative Patient received Ativan which was very helpful she was having quite a bit of muscle spasm but likely combination with the morphine from EMS dropped her O2 sat was placed on 2L, patient was able to be off O2 after some time. 1556: Spoke with orthopedic surgery Dr. Vale Fisher, feels would likely benefit transfer to [facility] for orthopedic repair. 1655 Spoke with [facility] ED, Dr. Wilson accepts for transfer. [facility] ED to ED. Will transport to [facility] as patient has had intermittent pain, monitoring. monitoring. Discharge Plan Departure Patient Disposition: [facility] Clinical Impression: Femoral distal fracture, Animal-rider injured by fall from or being thrown from horse in noncollision accident, initial encounter, Closed rib fracture Prescriptions: No Action dexamethasone 4 mg tablet 4 mg PO DAILY Qty: 4 0RF Referrals: Provider,Logan DOUGHERTY [Primary Care Provider] -
[2024-06-26 15:51] LABS: Add Manual Diff / Slide Review NO; Alanine Aminotransferase 24 IU/L (<35); Albumin 4.6 g/dL (3.5-5.0); Albumin Globulin Ratio 1.7 (1.0-2.8); Alkaline Phosphatase 72 U/L (38-126); Aspartate Aminotransferase 37 IU/L (14-36); BUN Creatinine Ratio 20.6 (6-22); Basophils Absolute Auto 100 /uL (0-100); Basophils Percent Auto 1.6 % (0-2); Bilirubin Total 0.7 mg/dL (0.2-1.3); Blood Urea Nitrogen 21 mg/dL (7-17); Calcium 9.7 mg/dL (8.4-10.2); Carbon Dioxide 26 mmol/L (22-32); Chloride 102 mmol/L (98-107); Eosinophils Absolute Auto 100 /uL (0-450); Eosinophils Percent Auto 1.6 % (2-4); Estimated Glomerular Filt Rate 58 mL/min (>60); Ethanol (ETOH) < 10 mg/dL; Globulin 2.7 g/dL (1.7-4.1); Glucose 109 mg/dL (80-110); HEMOLYSIS < 15 (0-50); Hematocrit 43.1 % (36-46); Hemoglobin 14.4 g/dL (12.0-16.0); Lactate (Lactic Acid) 1.5 mmol/L (0.7-2.1); Lipase 132 U/L (23-300); Lymphocytes Absolute Auto 900 /uL (1100-4500); Lymphocytes Percent Auto 17.3 % (25-40); Mean Corpuscular HGB Conc 33.5 % (30-36); Mean Corpuscular Hemoglobin 33.8 PG (26-34); Mean Corpuscular Volume 100.7 fL (80-100); Monocytes Absolute Auto 400 /uL (0-900); Monocytes Percent Auto 7.5 % (3-14); Neutrophils Absolute Auto 3900 /uL (1500-7000); Platelet Count 241 X10^3/uL (150-400); Potassium 3.7 mmol/L (3.4-5.1); Red Blood Cell Count 4.28 X10^6/uL (4.0-5.2); Red Cell Distribution Width 13.3 % (11.6-14.8); Sodium 136 mmol/L (137-145); Total Protein 7.3 g/dL (6.3-8.2); White Blood Cell Count 5.4 X10^3/uL (4.5-11.0)
[2024-06-26] MEDS: SODIUM CHLORIDE 0.9% 1,000 ML 500 ML IV (17:46)
[2024-06-26] MEDS: OXYCODONE IR 5 MG TABLET PO (17:46)
== END 2024-06-26 18:06 | disposition short-term general hospital (02) ==
PROVIDERS: Emergency Provider Emergency Medicine
DX: S72.401A Unspecified fracture of lower end of right femur, initial encounter for closed fracture (principal); S19.9XXA Unspecified injury of neck, initial encounter; J98.11 Atelectasis; M62.838 Other muscle spasm; S22.41XA Multiple fractures of ribs, right side, initial encounter for closed fracture; S09.90XA Unspecified injury of head, initial encounter; V80.010A Animal-rider injured by fall from or being thrown from horse in noncollision accident, initial encounter
CPT/HCPCS: 36415; 70450; 71045; 71275; 72125; 72170; 73552; 73560; 74177; 80053; 80320; 82962; 83605; 83690; 85025; 85610; 85730; 86850; 86900; 86901; 93005; 93010; 96374; 96376; 99284; 99285; J2060; Q9967